=== PATIENT | female | born 1970 | race Caucasian/White ===

== ENCOUNTER 2016-08-07 22:13 | Emergency (ER) | payer SELFPAY ==
--- NOTE | 2016-08-07 22:51 | RAD ---
THREE VIEWS OF THE RIGHT FOOT 08/07/16 COMPARISON: None. HISTORY: Stepped off a porch and hurt right great toe. FINDINGS: Three views of the right foot shows a comminuted fracture of the proximal phalanx of the great toe w hich extends to the interphalangeal joint. No other fractures are seen. IMPRESSION: Comminuted proximal phalanx fracture of the great toe. POS: [facility]
[2016-08-07] MEDS ORDERED: HYDROcodone/Acetaminophen 5/325 mg Tablet ONE (22:55)
== END 2016-08-07 23:05 | disposition home or self-care (01) ==
LOC: NAV ERS 22:13
DX: S92.411A Displaced fracture of proximal phalanx of right great toe, initial encounter for closed fracture (principal); F17.210 Nicotine dependence, cigarettes, uncomplicated; W01.0XXA Fall on same level from slipping, tripping and stumbling without subsequent striking against object, initial encounter

== ENCOUNTER 2022-02-15 08:32 | Emergency (ER) | payer SELFPAY ==
[2022-02-15] MEDS ORDERED: Ibuprofen 200 MG TAB ONE (09:16)
[2022-02-15] MEDS ORDERED: Dexamethasone 4 MG TAB ONE (09:16)
== END 2022-02-15 10:15 | disposition home or self-care (01) ==
LOC: NAV ERS 08:32
DX: J02.9 Acute pharyngitis, unspecified (principal); R20.2 Paresthesia of skin; F17.210 Nicotine dependence, cigarettes, uncomplicated
CPT/HCPCS: 71046; 87804; J8540